=== PATIENT | male | born 1970 | race Caucasian/White ===

== ENCOUNTER 2022-12-15 02:28 | Emergency (ER) | payer BC, MEDICAID ==
[2022-12-15 03:15] LABS: BASOPHILS ABSOLUTE AUTO 0.06 K/mm3 (0.01-0.08); BASOPHILS PERCENT AUTO 0.7 % (0.1-1.2); EOSINOPHILS ABSOLUTE AUTO 0.05 K/mm3 (0.04-0.54); EOSINOPHILS PERCENT AUTO 0.6 (0.8-7.0); HEMOGLOBIN 15.6 gm/dl (13.7-17.5); IMMATURE GRAN ABSOLUTE AUTO 0.01 K/mm3 (0.00-0.10); IMMATURE GRAN PERCENT AUTO 0.1 % (<=1.0); LYMPHOCYTES ABSOLUTE AUTO 1.13 K/mm3 (1.32-3.57); LYMPHOCYTES PERCENT AUTO 13.7 % (21.8-53.1); MEAN CORPUSCULAR HEMOGLOBIN 28.5 pg (25.7-32.2); MEAN CORPUSCULAR HGB CONC 33.9 g/dl (32.2-35.5); MEAN CORPUSCULAR VOLUME 83.9 fl (79.0-92.2); MEAN PLATELET VOLUME 9.8 fl (9.4-12.3); MONOCYTES ABSOLUTE AUTO 0.62 K/mm3 (0.30-0.82); MONOCYTES PERCENT AUTO 7.5 % (5.3-12.2); NEUTROPHILS ABSOLUTE AUTO 6.39 K/mm3 (1.78-5.38); NEUTROPHILS PERCENT AUTO 77.4 % (34.0-67.9); PLATELET COUNT,PLT 283 K/mm3 (163-337); RED BLOOD CELL COUNT 5.48 M/mm3 (4.63-6.08); WHITE BLOOD CELL COUNT,WBC 8.26 K/mm3 (4.23-9.07)
[2022-12-15 03:36] LABS: A/G RATIO 1.1 (1-2); ALBUMIN 3.9 g/dl (3.4-5.0); BILIRUBIN TOTAL 0.5 mg/dL (0.2-1.0); BUN/CREATININE RATIO 23.3 (14-18); CALCIUM 9.4 mg/dL (8.5-10.1); CREATININE 1.2 mg/dL (0.7-1.3); EST CRCL DRUG DOSING (CG) 76.69 mL/min; PROTEIN TOTAL,TP 7.5 g/dl (6.4-8.2)
[2022-12-15 03:49] LABS: BARBITURATE SCREEN,URINE NEGATIVE (CUTOFF=200); BENZODIAZEPINES SCREEN,URINE NEGATIVE (CUTOFF=150); BUPRENORPHINE SCREEN,URINE NEGATIVE (CUTOFF=10); METHADONE SCREEN, URINE NEGATIVE (CUT0FF=200); METHAMPHETAMINES SCREEN, URINE NEGATIVE (CUTOFF=500); OXYCODONE SCREEN,URINE NEGATIVE (CUT0FF=100); PROPOXYPHENE SCREEN,URINE NEGATIVE (CUTOFF=300); THC SCREEN,URINE 20 NG/ML NEGATIVE (CUTOFF=50)
[2022-12-15 03:50] LABS: AMPHETAMINES SCREEN, URINE NEGATIVE (CUTOFF=500)
[2022-12-15] MEDS ORDERED: Insulin Lispro 100 Unit/ML 3 ML KwikPen SUBCUT ONE (17:17)
[2022-12-15] MEDS: Mirtazapine 15 MG Tab PO SCH (21:52)
[2022-12-15] MEDS: Lisinopril 20 MG Tab PO SCH (21:53)
[2022-12-15] MEDS: OLANZapine 5 MG Tab PO SCH (21:53)
[2022-12-15] MEDS: amLODIPine 10 MG Tab PO SCH (21:56)
[2022-12-15] MEDS: Insulin Glargine,Human Rec. Analog 100 Units/ML 3 ML Pen SUBCUT SCH (21:57)
[2022-12-15] MEDS: atorvaSTATin 20 MG Tab PO SCH (21:57)
[2022-12-16] MEDS: hydrALAZINE 25 MG Tab PO SCH ×5 (06:41→21:41)
[2022-12-16] MEDS: Insulin Lispro 100 Unit/ML 3 ML KwikPen SUBCUT SCH ×3 (08:12→17:23)
[2022-12-16] MEDS: Lisinopril 20 MG Tab PO SCH ×2 (08:29→21:42)
[2022-12-16] MEDS: Sennosides 8.6 MG Tab PO SCH (08:29)
[2022-12-16] MEDS: Folic Acid 1 MG Tab PO SCH (08:31)
[2022-12-16] MEDS: Insulin Glargine,Human Rec. Analog 100 Units/ML 3 ML Pen SUBCUT SCH (21:35)
[2022-12-16] MEDS: OLANZapine 5 MG Tab PO SCH (21:39)
[2022-12-16] MEDS: amLODIPine 10 MG Tab PO SCH (21:39)
[2022-12-16] MEDS: atorvaSTATin 20 MG Tab PO SCH (21:41)
[2022-12-16] MEDS: Mirtazapine 15 MG Tab PO SCH (21:49)
[2022-12-17] MEDS: hydrALAZINE 25 MG Tab PO SCH ×4 (04:45→20:57)
[2022-12-17] MEDS: Lisinopril 20 MG Tab PO SCH ×2 (07:38→21:18)
[2022-12-17] MEDS: Folic Acid 1 MG Tab PO SCH (07:38)
[2022-12-17] MEDS: Insulin Lispro 100 Unit/ML 3 ML KwikPen SUBCUT SCH ×3 (07:40→18:14)
[2022-12-17] MEDS: Sennosides 8.6 MG Tab PO SCH (07:40)
[2022-12-17] MEDS: atorvaSTATin 20 MG Tab PO SCH (20:55)
[2022-12-17] MEDS: amLODIPine 10 MG Tab PO SCH (20:55)
[2022-12-17] MEDS: Mirtazapine 15 MG Tab PO SCH (20:58)
[2022-12-17] MEDS: OLANZapine 5 MG Tab PO SCH (20:58)
[2022-12-17] MEDS: Insulin Glargine,Human Rec. Analog 100 Units/ML 3 ML Pen SUBCUT SCH (20:59)
[2022-12-18] MEDS: hydrALAZINE 25 MG Tab PO SCH ×4 (02:52→20:27)
[2022-12-18] MEDS: Insulin Lispro 100 Unit/ML 3 ML KwikPen SUBCUT SCH ×3 (07:56→17:14)
[2022-12-18] MEDS: Lisinopril 20 MG Tab PO SCH ×2 (08:29→20:27)
[2022-12-18] MEDS: Sennosides 8.6 MG Tab PO SCH (08:29)
[2022-12-18] MEDS: Folic Acid 1 MG Tab PO SCH (08:29)
[2022-12-18] MEDS: amLODIPine 10 MG Tab PO SCH (20:27)
[2022-12-18] MEDS: OLANZapine 5 MG Tab PO SCH (20:28)
[2022-12-18] MEDS: Insulin Glargine,Human Rec. Analog 100 Units/ML 3 ML Pen SUBCUT SCH (20:28)
[2022-12-18] MEDS: atorvaSTATin 20 MG Tab PO SCH (20:28)
[2022-12-18] MEDS: Mirtazapine 15 MG Tab PO SCH (20:28)
[2022-12-19] MEDS: hydrALAZINE 25 MG Tab PO SCH ×4 (03:47→22:01)
[2022-12-19] MEDS: Folic Acid 1 MG Tab PO SCH (07:53)
[2022-12-19] MEDS: Insulin Lispro 100 Unit/ML 3 ML KwikPen SUBCUT SCH ×3 (07:56→17:34)
[2022-12-19] MEDS: Lisinopril 20 MG Tab PO SCH ×2 (09:25→21:45)
[2022-12-19] MEDS: Sennosides 8.6 MG Tab PO SCH (09:25)
[2022-12-19] MEDS: Mirtazapine 15 MG Tab PO SCH (21:47)
[2022-12-19] MEDS: atorvaSTATin 20 MG Tab PO SCH (21:48)
[2022-12-19] MEDS: OLANZapine 5 MG Tab PO SCH (21:48)
[2022-12-19] MEDS: amLODIPine 10 MG Tab PO SCH (21:49)
[2022-12-19] MEDS: Insulin Glargine,Human Rec. Analog 100 Units/ML 3 ML Pen SUBCUT SCH (21:50)
[2022-12-20] MEDS: hydrALAZINE 25 MG Tab PO SCH ×4 (03:00→22:34)
[2022-12-20] MEDS: Insulin Lispro 100 Unit/ML 3 ML KwikPen SUBCUT SCH ×3 (07:37→17:32)
[2022-12-20] MEDS: Lisinopril 20 MG Tab PO SCH ×2 (08:47→20:35)
[2022-12-20] MEDS: Insulin Glargine,Human Rec. Analog 100 Units/ML 3 ML Pen SUBCUT SCH ×2 (08:47→20:37)
[2022-12-20] MEDS: Folic Acid 1 MG Tab PO SCH (08:47)
[2022-12-20] MEDS: Sennosides 8.6 MG Tab PO SCH (08:47)
[2022-12-20] MEDS: OLANZapine 5 MG Tab PO SCH (20:34)
[2022-12-20] MEDS: atorvaSTATin 20 MG Tab PO SCH (20:35)
[2022-12-20] MEDS: Mirtazapine 15 MG Tab PO SCH (20:35)
[2022-12-20] MEDS: amLODIPine 10 MG Tab PO SCH (20:36)
[2022-12-21] MEDS: hydrALAZINE 25 MG Tab PO SCH ×4 (03:08→20:24)
[2022-12-21] MEDS: Insulin Lispro 100 Unit/ML 3 ML KwikPen SUBCUT SCH ×3 (07:25→17:38)
[2022-12-21] MEDS: Insulin Glargine,Human Rec. Analog 100 Units/ML 3 ML Pen SUBCUT SCH ×2 (07:52→20:31)
[2022-12-21] MEDS: Sennosides 8.6 MG Tab PO SCH (08:42)
[2022-12-21] MEDS: Folic Acid 1 MG Tab PO SCH (08:42)
[2022-12-21] MEDS: Lisinopril 20 MG Tab PO SCH ×2 (08:43→20:22)
[2022-12-21] MEDS: atorvaSTATin 20 MG Tab PO SCH (20:22)
[2022-12-21] MEDS: amLODIPine 10 MG Tab PO SCH (20:24)
[2022-12-21] MEDS: Mirtazapine 15 MG Tab PO SCH (20:25)
[2022-12-21] MEDS: OLANZapine 5 MG Tab PO SCH (20:25)
[2022-12-22] MEDS: hydrALAZINE 25 MG Tab PO SCH ×2 (04:40→09:45)
[2022-12-22] MEDS: Folic Acid 1 MG Tab PO SCH (09:36)
[2022-12-22] MEDS: Sennosides 8.6 MG Tab PO SCH (09:36)
[2022-12-22] MEDS: Insulin Glargine,Human Rec. Analog 100 Units/ML 3 ML Pen SUBCUT SCH (09:37)
[2022-12-22] MEDS: Insulin Lispro 100 Unit/ML 3 ML KwikPen SUBCUT SCH ×3 (09:45→18:30)
[2022-12-22] MEDS: Lisinopril 20 MG Tab PO SCH (09:45)
[2022-12-22] MEDS ORDERED: Insulin Lispro 100 Unit/ML 3 ML KwikPen SUBCUT ONE (15:46)
[2022-12-22] MEDS ORDERED: Insulin NPH/Insulin Regular,Human 70-30 100 Units/ML 10 ML Vial SUBCUT SCH (16:00)
[2022-12-23] MEDS: Insulin Lispro 100 Unit/ML 3 ML KwikPen SUBCUT SCH ×3 (08:35→17:15)
[2022-12-23] MEDS: Lisinopril 20 MG Tab PO SCH ×2 (08:39→22:10)
[2022-12-23] MEDS: Folic Acid 1 MG Tab PO SCH (08:55)
[2022-12-23] MEDS: Insulin Glargine,Human Rec. Analog 100 Units/ML 3 ML Pen SUBCUT SCH ×2 (08:55→22:08)
[2022-12-23] MEDS: Sennosides 8.6 MG Tab PO SCH (08:55)
[2022-12-23] MEDS: hydrALAZINE 25 MG Tab PO SCH (09:06)
[2022-12-23] MEDS: OLANZapine 5 MG Tab PO SCH ×2 (22:06→22:16)
[2022-12-23] MEDS: amLODIPine 10 MG Tab PO SCH (22:06)
[2022-12-24] MEDS: atorvaSTATin 20 MG Tab PO SCH ×2 (00:27→20:23)
[2022-12-24] MEDS: Mirtazapine 15 MG Tab PO SCH ×2 (00:27→20:25)
[2022-12-24] MEDS: Insulin Lispro 100 Unit/ML 3 ML KwikPen SUBCUT SCH ×3 (08:03→17:59)
[2022-12-24] MEDS: Insulin Glargine,Human Rec. Analog 100 Units/ML 3 ML Pen SUBCUT SCH ×2 (08:04→20:24)
[2022-12-24] MEDS: Folic Acid 1 MG Tab PO SCH (08:07)
[2022-12-24] MEDS: Sennosides 8.6 MG Tab PO SCH (08:07)
[2022-12-24] MEDS: Lisinopril 20 MG Tab PO SCH ×2 (08:10→20:23)
[2022-12-24] MEDS: amLODIPine 10 MG Tab PO SCH (20:24)
[2022-12-24] MEDS: OLANZapine 5 MG Tab PO SCH (20:25)
[2022-12-25] MEDS: Folic Acid 1 MG Tab PO SCH (07:59)
[2022-12-25] MEDS: Sennosides 8.6 MG Tab PO SCH (07:59)
[2022-12-25] MEDS: Insulin Glargine,Human Rec. Analog 100 Units/ML 3 ML Pen SUBCUT SCH ×2 (08:00→20:23)
[2022-12-25] MEDS: Insulin Lispro 100 Unit/ML 3 ML KwikPen SUBCUT SCH ×3 (08:01→17:38)
[2022-12-25] MEDS: Lisinopril 20 MG Tab PO SCH ×2 (09:45→20:21)
[2022-12-25] MEDS: amLODIPine 10 MG Tab PO SCH (20:20)
[2022-12-25] MEDS: atorvaSTATin 20 MG Tab PO SCH (20:20)
[2022-12-25] MEDS: Mirtazapine 15 MG Tab PO SCH (20:22)
[2022-12-25] MEDS: OLANZapine 5 MG Tab PO SCH (20:22)
[2022-12-26] MEDS: Sennosides 8.6 MG Tab PO SCH (08:02)
[2022-12-26] MEDS: Lisinopril 20 MG Tab PO SCH ×3 (08:02→20:36)
[2022-12-26] MEDS: Folic Acid 1 MG Tab PO SCH (08:04)
[2022-12-26] MEDS: Insulin Lispro 100 Unit/ML 3 ML KwikPen SUBCUT SCH ×2 (08:12→17:10)
[2022-12-26] MEDS: Insulin Glargine,Human Rec. Analog 100 Units/ML 3 ML Pen SUBCUT SCH ×3 (08:21→20:43)
[2022-12-26] MEDS: Mirtazapine 15 MG Tab PO SCH ×2 (20:30→20:36)
[2022-12-26] MEDS: atorvaSTATin 20 MG Tab PO SCH ×2 (20:31→20:36)
[2022-12-26] MEDS: amLODIPine 10 MG Tab PO SCH ×2 (20:35→20:36)
[2022-12-26] MEDS: OLANZapine 5 MG Tab PO SCH (20:36)
[2022-12-27] MEDS: Insulin Lispro 100 Unit/ML 3 ML KwikPen SUBCUT SCH ×3 (07:30→16:31)
[2022-12-27] MEDS: Folic Acid 1 MG Tab PO SCH (07:44)
[2022-12-27] MEDS: Sennosides 8.6 MG Tab PO SCH (07:44)
[2022-12-27] MEDS: Lisinopril 20 MG Tab PO SCH (07:44)
[2022-12-27] MEDS: Insulin Glargine,Human Rec. Analog 100 Units/ML 3 ML Pen SUBCUT SCH (07:51)
[2022-12-28] MEDS: Insulin Glargine,Human Rec. Analog 100 Units/ML 3 ML Pen SUBCUT SCH ×3 (01:12→20:25)
[2022-12-28] MEDS: Lisinopril 20 MG Tab PO SCH ×3 (01:16→20:59)
[2022-12-28] MEDS: atorvaSTATin 20 MG Tab PO SCH ×2 (01:20→20:59)
[2022-12-28] MEDS: OLANZapine 5 MG Tab PO SCH ×2 (01:21→21:01)
[2022-12-28] MEDS: amLODIPine 10 MG Tab PO SCH ×2 (01:22→21:00)
[2022-12-28] MEDS: Mirtazapine 15 MG Tab PO SCH ×2 (01:23→20:59)
[2022-12-28] MEDS: Folic Acid 1 MG Tab PO SCH (09:30)
[2022-12-28] MEDS: Sennosides 8.6 MG Tab PO SCH (09:30)
[2022-12-28] MEDS: Insulin Lispro 100 Unit/ML 3 ML KwikPen SUBCUT SCH ×2 (10:51→16:09)
[2022-12-29] MEDS: Insulin Lispro 100 Unit/ML 3 ML KwikPen SUBCUT SCH ×4 (07:23→17:17)
[2022-12-29] MEDS: Lisinopril 20 MG Tab PO SCH ×2 (08:08→20:25)
[2022-12-29] MEDS: Sennosides 8.6 MG Tab PO SCH (08:08)
[2022-12-29] MEDS: Folic Acid 1 MG Tab PO SCH (08:08)
[2022-12-29] MEDS: Insulin Glargine,Human Rec. Analog 100 Units/ML 3 ML Pen SUBCUT SCH ×2 (08:12→20:28)
[2022-12-29] MEDS: Mirtazapine 15 MG Tab PO SCH (20:25)
[2022-12-29] MEDS: OLANZapine 5 MG Tab PO SCH (20:26)
[2022-12-29] MEDS: amLODIPine 10 MG Tab PO SCH (20:26)
[2022-12-29] MEDS: atorvaSTATin 20 MG Tab PO SCH (20:26)
[2022-12-30] MEDS: Insulin Glargine,Human Rec. Analog 100 Units/ML 3 ML Pen SUBCUT SCH (09:17)
[2022-12-30] MEDS: Insulin Lispro 100 Unit/ML 3 ML KwikPen SUBCUT SCH ×4 (09:18→17:25)
[2022-12-30] MEDS: Folic Acid 1 MG Tab PO SCH (09:20)
[2022-12-30] MEDS: Sennosides 8.6 MG Tab PO SCH (09:20)
[2022-12-30] MEDS: Lisinopril 20 MG Tab PO SCH ×2 (09:20→21:11)
[2022-12-30] MEDS: atorvaSTATin 20 MG Tab PO SCH (21:10)
[2022-12-30] MEDS: amLODIPine 10 MG Tab PO SCH (21:11)
[2022-12-30] MEDS: OLANZapine 5 MG Tab PO SCH (21:12)
[2022-12-30] MEDS: Mirtazapine 15 MG Tab PO SCH (21:12)
[2022-12-31] MEDS: Lisinopril 20 MG Tab PO SCH ×2 (07:25→20:47)
[2022-12-31] MEDS: Sennosides 8.6 MG Tab PO SCH (07:25)
[2022-12-31] MEDS: Folic Acid 1 MG Tab PO SCH (07:29)
[2022-12-31] MEDS: Insulin Lispro 100 Unit/ML 3 ML KwikPen SUBCUT SCH ×3 (07:29→17:36)
[2022-12-31] MEDS: Insulin Glargine,Human Rec. Analog 100 Units/ML 3 ML Pen SUBCUT SCH (07:31)
[2022-12-31] MEDS: OLANZapine 5 MG Tab PO SCH (20:46)
[2022-12-31] MEDS: amLODIPine 10 MG Tab PO SCH (20:47)
[2022-12-31] MEDS: Mirtazapine 15 MG Tab PO SCH (20:48)
[2022-12-31] MEDS: atorvaSTATin 20 MG Tab PO SCH (20:48)
[2023-01-01] MEDS: Insulin Lispro 100 Unit/ML 3 ML KwikPen SUBCUT SCH ×3 (07:47→18:12)
[2023-01-01] MEDS: Folic Acid 1 MG Tab PO SCH (08:37)
[2023-01-01] MEDS: Lisinopril 20 MG Tab PO SCH ×2 (08:37→21:13)
[2023-01-01] MEDS: Sennosides 8.6 MG Tab PO SCH (08:37)
[2023-01-01] MEDS: Insulin Glargine,Human Rec. Analog 100 Units/ML 3 ML Pen SUBCUT SCH (08:44)
[2023-01-01] MEDS: OLANZapine 5 MG Tab PO SCH (21:10)
[2023-01-01] MEDS: atorvaSTATin 20 MG Tab PO SCH (21:11)
[2023-01-01] MEDS: amLODIPine 10 MG Tab PO SCH (21:11)
[2023-01-01] MEDS: Mirtazapine 15 MG Tab PO SCH (21:14)
[2023-01-02] MEDS: Insulin Lispro 100 Unit/ML 3 ML KwikPen SUBCUT SCH ×6 (07:40→21:20)
[2023-01-02] MEDS: Lisinopril 20 MG Tab PO SCH ×2 (07:46→21:18)
[2023-01-02] MEDS: Folic Acid 1 MG Tab PO SCH (07:47)
[2023-01-02] MEDS: Sennosides 8.6 MG Tab PO SCH (07:47)
[2023-01-02] MEDS: Insulin Glargine,Human Rec. Analog 100 Units/ML 3 ML Pen SUBCUT SCH (17:34)
[2023-01-02] MEDS: amLODIPine 10 MG Tab PO SCH (21:15)
[2023-01-02] MEDS: OLANZapine 5 MG Tab PO SCH (21:17)
[2023-01-02] MEDS: Mirtazapine 15 MG Tab PO SCH (21:17)
[2023-01-02] MEDS: atorvaSTATin 20 MG Tab PO SCH (21:18)
[2023-01-03] MEDS: Insulin Lispro 100 Unit/ML 3 ML KwikPen SUBCUT SCH ×4 (07:57→22:10)
[2023-01-03] MEDS: Lisinopril 20 MG Tab PO SCH ×2 (07:58→22:04)
[2023-01-03] MEDS: Folic Acid 1 MG Tab PO SCH (07:58)
[2023-01-03] MEDS: Sennosides 8.6 MG Tab PO SCH (07:59)
[2023-01-03] MEDS: Insulin Glargine,Human Rec. Analog 100 Units/ML 3 ML Pen SUBCUT SCH (18:14)
[2023-01-03] MEDS: Mirtazapine 15 MG Tab PO SCH (22:03)
[2023-01-03] MEDS: atorvaSTATin 20 MG Tab PO SCH (22:03)
[2023-01-03] MEDS: OLANZapine 5 MG Tab PO SCH (22:04)
[2023-01-03] MEDS: amLODIPine 10 MG Tab PO SCH (22:09)
[2023-01-04] MEDS ORDERED: 50% Dextrose in Water 50 ML Syringe IVPUSH PRN (02:40)
[2023-01-04] MEDS: Insulin Lispro 100 Unit/ML 3 ML KwikPen SUBCUT SCH ×4 (08:00→22:17)
[2023-01-04] MEDS: Sennosides 8.6 MG Tab PO SCH (09:41)
[2023-01-04] MEDS: Folic Acid 1 MG Tab PO SCH (09:42)
[2023-01-04] MEDS: Lisinopril 20 MG Tab PO SCH ×2 (09:42→21:56)
[2023-01-04] MEDS: Insulin Glargine,Human Rec. Analog 100 Units/ML 3 ML Pen SUBCUT SCH (18:00)
[2023-01-04] MEDS: atorvaSTATin 20 MG Tab PO SCH (22:04)
[2023-01-04] MEDS: OLANZapine 5 MG Tab PO SCH (22:04)
[2023-01-04] MEDS: amLODIPine 10 MG Tab PO SCH (22:05)
[2023-01-04] MEDS: Mirtazapine 15 MG Tab PO SCH (22:06)
[2023-01-05] MEDS: Insulin Lispro 100 Unit/ML 3 ML KwikPen SUBCUT SCH ×4 (07:13→22:00)
[2023-01-05] MEDS: Lisinopril 20 MG Tab PO SCH ×2 (07:40→21:18)
[2023-01-05] MEDS: Sennosides 8.6 MG Tab PO SCH (07:40)
[2023-01-05] MEDS: Insulin Glargine,Human Rec. Analog 100 Units/ML 3 ML Pen SUBCUT SCH ×2 (07:40→11:15)
[2023-01-05] MEDS: Folic Acid 1 MG Tab PO SCH (07:41)
[2023-01-05] MEDS: amLODIPine 5 MG Tab PO SCH (21:16)
[2023-01-05] MEDS: Mirtazapine 15 MG Tab PO SCH (21:17)
[2023-01-05] MEDS: atorvaSTATin 20 MG Tab PO SCH (21:17)
[2023-01-05] MEDS: OLANZapine 5 MG Tab PO SCH (21:18)
[2023-01-06 02:43] LABS: ANION GAP 11.6 (5-15); BUN/CREATININE RATIO 32.9 (14-18); CALCIUM 8.7 mg/dL (8.5-10.1); CREATININE 0.7 mg/dL (0.7-1.3); EST CRCL DRUG DOSING (CG) 131.48 mL/min; POTASSIUM,K 3.6 mEq/L (3.5-5.1)
[2023-01-06] MEDS ORDERED: Insulin Glargine,Human Rec. Analog 100 Units/ML 3 ML Pen SUBCUT SCH ×2 (07:00→08:00)
[2023-01-06] MEDS: Insulin Lispro 100 Unit/ML 3 ML KwikPen SUBCUT SCH ×4 (07:59→21:36)
[2023-01-06] MEDS: Insulin Glargine,Human Rec. Analog 100 Units/ML 3 ML Pen SUBCUT SCH (08:01)
[2023-01-06] MEDS: Folic Acid 1 MG Tab PO SCH (08:01)
[2023-01-06] MEDS: Sennosides 8.6 MG Tab PO SCH (08:01)
[2023-01-06] MEDS: Lisinopril 20 MG Tab PO SCH ×2 (08:01→21:58)
[2023-01-06] MEDS: OLANZapine 5 MG Tab PO SCH (21:33)
[2023-01-06] MEDS: Mirtazapine 15 MG Tab PO SCH (21:33)
[2023-01-06] MEDS: amLODIPine 5 MG Tab PO SCH (21:34)
[2023-01-06] MEDS: atorvaSTATin 20 MG Tab PO SCH (21:58)
[2023-01-07] MEDS: Insulin Lispro 100 Unit/ML 3 ML KwikPen SUBCUT SCH ×4 (07:41→22:30)
[2023-01-07] MEDS: Insulin Glargine,Human Rec. Analog 100 Units/ML 3 ML Pen SUBCUT SCH (08:12)
[2023-01-07] MEDS: Folic Acid 1 MG Tab PO SCH (08:13)
[2023-01-07] MEDS: Lisinopril 20 MG Tab PO SCH ×2 (08:13→21:33)
[2023-01-07] MEDS: Sennosides 8.6 MG Tab PO SCH (08:13)
[2023-01-07] MEDS: OLANZapine 5 MG Tab PO SCH (21:32)
[2023-01-07] MEDS: Mirtazapine 15 MG Tab PO SCH (21:33)
[2023-01-07] MEDS: amLODIPine 5 MG Tab PO SCH (21:33)
[2023-01-07] MEDS: atorvaSTATin 20 MG Tab PO SCH (21:34)
[2023-01-08] MEDS: Insulin Lispro 100 Unit/ML 3 ML KwikPen SUBCUT SCH ×4 (07:20→21:11)
[2023-01-08] MEDS: Insulin Glargine,Human Rec. Analog 100 Units/ML 3 ML Pen SUBCUT SCH (07:21)
[2023-01-08] MEDS: Lisinopril 20 MG Tab PO SCH ×2 (08:44→21:16)
[2023-01-08] MEDS: Sennosides 8.6 MG Tab PO SCH (08:44)
[2023-01-08] MEDS: Folic Acid 1 MG Tab PO SCH (08:47)
[2023-01-08] MEDS: atorvaSTATin 20 MG Tab PO SCH (21:12)
[2023-01-08] MEDS: Mirtazapine 15 MG Tab PO SCH (21:15)
[2023-01-08] MEDS: amLODIPine 5 MG Tab PO SCH (21:15)
[2023-01-08] MEDS: OLANZapine 5 MG Tab PO SCH (21:16)
[2023-01-09] MEDS: Insulin Lispro 100 Unit/ML 3 ML KwikPen SUBCUT SCH ×2 (06:36→12:15)
[2023-01-09] MEDS: Insulin Glargine,Human Rec. Analog 100 Units/ML 3 ML Pen SUBCUT SCH (09:13)
[2023-01-09] MEDS: Folic Acid 1 MG Tab PO SCH (09:13)
[2023-01-09] MEDS: Sennosides 8.6 MG Tab PO SCH (09:14)
[2023-01-09] MEDS: Lisinopril 20 MG Tab PO SCH (09:15)
== END 2023-01-09 13:33 | disposition home or self-care (01) ==
LOC: JD.ED 02:28
DX: S06.9XAA Unspecified intracranial injury with loss of consciousness status unknown, initial encounter (principal); I10 Essential (primary) hypertension; E10.9 Type 1 diabetes mellitus without complications
CPT/HCPCS: 36415; 80048; 80053; 80143; 80179; 80306; 80307; 82947; 85025; 93005; 99284; A9270; J1815; 90792-GT; 93010; 99285; J3490

== ENCOUNTER 2023-05-06 15:57 | Inpatient (IN) | payer MEDICAID ==
[2023-05-06] MEDS ORDERED: Insulin Regular in 0.9 % NACL 100 ML IV SCH ×2 (16:30→17:45)
[2023-05-06] MEDS ORDERED: Lactated Ringers 1,000 ML IV SCH (16:30)
[2023-05-06 17:08] LABS: BASOPHILS PERCENT AUTO 0.1 % (0.0-1.0); HEMATOCRIT 41.3 % (42.0-52.0); IMMATURE GRAN ABSOLUTE AUTO 0.08 K/mm3 (0.00-0.05); IMMATURE GRAN PERCENT AUTO 0.6 % (0.0-0.4); LYMPHOCYTES ABSOLUTE AUTO 1.1 K/mm3 (1.0-4.8); LYMPHOCYTES PERCENT AUTO 7.7 % (24.0-44.0); MEAN CORPUSCULAR HEMOGLOBIN 29.7 pg (28.0-32.0); MEAN CORPUSCULAR HGB CONC 33.9 g/dl (32.0-36.0); MEAN CORPUSCULAR VOLUME 87.5 fl (83.0-99.0); MEAN PLATELET VOLUME 10.4 fl (9.4-12.4); MONOCYTES ABSOLUTE AUTO 0.8 K/mm3 (0.0-0.8); MONOCYTES PERCENT AUTO 5.8 % (0.0-8.0); NEUTROPHILS ABSOLUTE AUTO 12.2 K/mm3 (1.8-7.7); NEUTROPHILS PERCENT AUTO 85.8 % (41.0-71.0); PLATELET COUNT,PLT 249 K/mm3 (150-400); RED BLOOD CELL COUNT 4.72 M/mm3 (4.52-5.90); WHITE BLOOD CELL COUNT,WBC 14.22 K/mm3 (3.9-11.3)
[2023-05-06 17:12] LABS: BASE EXCESS ARTERIAL -13.8 (-2-2.0); BICARBONATE,ARTERIAL 12.7 meq/L (22.0-26.0); O2 SATURATION ARTERIAL 50.5 % (96.0-97.0)
[2023-05-06 17:12] LABS: APPEARANCE,URINE CLEAR (Clear); BILIRUBIN,URINE 1+ (Negative); COLOR,URINE YELLOW (Yellow); GLUCOSE,URINE 2+ (Negative); KETONES,URINE 4+ (Negative); LEUKOCYTE ESTERASE,URINE NEGATIVE (Negative); NITRITE,URINE NEGATIVE (Negative); OCCULT BLOOD,URINE NEGATIVE (Negative); PH,URINE 5.5 (5.0-8.0); PROTEIN,URINE NEGATIVE (Negative); UROBILINOGEN,URINE 0.2 (0.2-1.0)
[2023-05-06 17:26] LABS: BACTERIA,URINE OCCASIONAL /hpf (FEW); RBC,URINE 0-5 /hpf (0-5); SQUAMOUS EPITHELIAL CELLS,UR NOT SEEN /hpf (0-5); WBC,URINE 0-5 /hpf (0-5)
[2023-05-06 17:27] LABS: MUCUS,URINE NOT SEEN /hpf (FEW)
[2023-05-06 17:31] LABS: A/G RATIO 1.2 (1-2); ALBUMIN 3.7 g/dl (3.4-5.0); ANION GAP 28.4 (5-15); BILIRUBIN TOTAL 0.8 mg/dL (0.2-1.0); BUN/CREATININE RATIO 16.2 (14-18); C-REACTIVE PROTEIN 1.4 mg/dL (<1.0); CALCIUM 9.5 mg/dL (8.5-10.1); CREATININE 2.1 mg/dL (0.7-1.3); EST CRCL DRUG DOSING (CG) 43.83 mL/min; LACTIC ACID 3.2 mmol/L (0.4-2.0); MAGNESIUM 2.3 mg/dL (1.8-2.4); PHOSPHORUS 2.5 mg/dL (2.6-4.7); POTASSIUM,K 4.4 mEq/L (3.5-5.1); PROTEIN TOTAL,TP 6.9 g/dl (6.4-8.2)
[2023-05-06] MEDS ORDERED: Ondansetron 4 MG/2 ML SDV IV PRN (18:32)
[2023-05-06] MEDS ORDERED: Sodium Chloride 0.9% 1,000 ML IV ONE (18:34)
[2023-05-06] MEDS ORDERED: NS + KCl 20mEq/L 1,000 ML IV SCH (18:45)
[2023-05-06 20:08] LABS: ANION GAP 20.6 (5-15); BUN/CREATININE RATIO 15.3 (14-18); CALCIUM 9.2 mg/dL (8.5-10.1); CREATININE 1.9 mg/dL (0.7-1.3); EST CRCL DRUG DOSING (CG) 48.44 mL/min; POTASSIUM,K 4.6 mEq/L (3.5-5.1)
[2023-05-06] MEDS: Heparin Sodium 5,000 Units/ML Vial SUBCUT SCH (20:26)
[2023-05-06] MEDS: Dextrose 5%-0.45% NaCl 1,000 ML IV SCH (22:05)
[2023-05-07 00:33] LABS: ANION GAP 16.7 (5-15); CALCIUM 8.9 mg/dL (8.5-10.1); CREATININE 1.6 mg/dL (0.7-1.3); EST CRCL DRUG DOSING (CG) 53.33 mL/min; POTASSIUM,K 3.7 mEq/L (3.5-5.1)
[2023-05-07] MEDS: Heparin Sodium 5,000 Units/ML Vial SUBCUT SCH ×3 (04:38→19:55)
[2023-05-07 05:20] LABS: ANION GAP 13.6 (5-15); BUN/CREATININE RATIO 16.2 (14-18); CALCIUM 8.3 mg/dL (8.5-10.1); CREATININE 1.3 mg/dL (0.7-1.3); EST CRCL DRUG DOSING (CG) 65.63 mL/min; POTASSIUM,K 3.6 mEq/L (3.5-5.1)
[2023-05-07] MEDS: Dextrose 5%-0.45% NaCl 1,000 ML IV SCH (06:19)
[2023-05-07] MEDS: Insulin Glargine,Human Rec. Analog 100 Units/ML 3 ML Pen SUBCUT SCH ×2 (06:19→08:00)
[2023-05-07] MEDS: Insulin Lispro 100 Unit/ML 3 ML KwikPen SUBCUT SCH ×4 (07:31→20:00)
[2023-05-07] MEDS: Mirtazapine 15 MG Tab PO SCH ×2 (08:00→08:11)
[2023-05-07] MEDS: OLANZapine 5 MG Tab PO SCH ×2 (08:00→08:11)
[2023-05-07] MEDS: Potassium Chloride 10 MEQ in Premix Bag 1 BAG IV SCH ×4 (08:00→11:03)
[2023-05-08] MEDS: Heparin Sodium 5,000 Units/ML Vial SUBCUT SCH ×2 (04:24→11:20)
[2023-05-08] MEDS: Insulin Lispro 100 Unit/ML 3 ML KwikPen SUBCUT SCH ×2 (08:36→11:20)
[2023-05-08] MEDS: OLANZapine 5 MG Tab PO SCH (08:37)
[2023-05-08] MEDS: Mirtazapine 15 MG Tab PO SCH (08:37)
[2023-05-08] MEDS ORDERED: Insulin Glargine,Human Rec. Analog 100 Units/ML 3 ML Pen SUBCUT SCH (09:00)
== END 2023-05-08 13:14 | disposition home or self-care (01) | DRG 638 ==
LOC: JD.ED 15:57 → JD.ICU 18:11 → JD.MS 05-07 11:54
PROVIDERS: ADMIT Internal Medicine; ATTEND Internal Medicine
DX: E10.10 Type 1 diabetes mellitus with ketoacidosis without coma (principal); N17.9 Acute kidney failure, unspecified; E86.9 Volume depletion, unspecified; F41.9 Anxiety disorder, unspecified; F32.A Depression, unspecified; G30.9 Alzheimer's disease, unspecified; F02.80 Dementia in other diseases classified elsewhere, unspecified severity, without behavioral disturbance, psychotic disturbance, mood disturbance, and anxiety; E86.0 Dehydration; Z87.820 Personal history of traumatic brain injury; Z79.4 Long term (current) use of insulin; E10.69 Type 1 diabetes mellitus with other specified complication; Z88.8 Allergy status to other drugs, medicaments and biological substances; E87.0 Hyperosmolality and hypernatremia; I10 Essential (primary) hypertension; Z88.6 Allergy status to analgesic agent; Z79.899 Other long term (current) drug therapy
CPT/HCPCS: 36415; 36600; 71045; 80053; 81001; 82010; 82803; 82947; 83605; 83690; 83735; 83880; 83930; 84100; 84484; 85025; 86140; 87040 ×2; 93005; 96360; 99284; J1815; J7120; 80048; 93010; 97161-GP; 99285; A9270-GY; J1644; J3480; J7030; J7042

== ENCOUNTER 2023-09-22 07:11 | Emergency (ER) | payer MEDICAID ==
[2023-09-22] MEDS: Insulin Regular, Human 100 Units/ML 3 ML Vial SUBCUT ONE (07:54)
== END 2023-09-22 10:05 | disposition home or self-care (01) ==
LOC: JD.ED 07:11
DX: E10.65 Type 1 diabetes mellitus with hyperglycemia (principal); I10 Essential (primary) hypertension; Z88.6 Allergy status to analgesic agent; Z79.899 Other long term (current) drug therapy; Z79.4 Long term (current) use of insulin
CPT/HCPCS: 82947; 99285; J1815; 99283